=== PATIENT | male | born 1950 | race Caucasian/White ===

== ENCOUNTER 2021-12-16 06:22 | Emergency (ER) | payer OTHER ==
[2021-12-16 07:05] LABS: #Basophils 0.1 10x3/uL (0.0-0.2); #Eosinphils 0.2 10x3/uL (0.0-0.5); #Monocytes 0.8 10x3/uL (0.0-1.1); #Neutrophils 7.6 10x3/uL (1.5-8.4); %Basophils 0.5 % (0.0-2.0); %Eosinophils 1.6 % (0.0-6.0); %Lymphocytes 14.3 % (18.0-47.0); %Neutrophils 74.7 % (40.0-75.0); Hemoglobin 15.3 g/dL (13.5-17.5); Mean Corpuscular HGB CONC 35.3 g/dL (32.0-36.0); Mean Corpuscular Hemoglobin 30.3 pg (27.0-33.0); Mean Corpuscular Volume 85.7 fl (81.2-95.1); Mean Platelet Volume 9.7 fl (7.4-10.4); Platelet Count 253 10x3/uL (150-450); RBC Distribution Width 12.2 % (11.5-14.5); Red Blood Cell (RBC) Count 5.05 10x6/uL (4.32-5.72); White Blood Cell (WBC) Count 10.1 10x3/uL (3.5-10.5)
[2021-12-16] MEDS ORDERED: Lidocaine 1% w/Epinephrine 1:100K 20 ML VIAL ONE (07:16)
[2021-12-16] MEDS ORDERED: Boostrix 0.5 ML (Tdap) VIAL ONE (07:17)
[2021-12-16 07:19] LABS: ALT (SGPT) 18 U/L (8-55); AST (SGOT) 15 U/L (5-34); Albumin 3.6 g/dL (3.4-4.8); Alkaline Phosphatase 85 U/L (40-110); Anion Gap 18 mmol/L (10-20); BUN (Urea Nitrogen) 22 mg/dL (8.4-25.7); Bilirubin, Total 0.8 mg/dL (0.2-1.2); Calc. Creatinine Clearance 0 mL/min (70-130); Calcium 8.5 mg/dL (7.8-10.44); Carbon Dioxide 22 mmol/L (23-31); Chloride 98 mmol/L (98-107); Globulin 3.2 g/dL (2.4-3.5); Glucose 441 mg/dL (80-115); Potassium 4.4 mmol/L (3.5-5.1); Protein, Total 6.8 g/dL (5.8-8.1); Sodium 134 mmol/L (136-145)
[2021-12-16 07:21] LABS: PTT 30.8 sec (22.0-33.0); Prothrombin Time 11.3 sec (9.5-12.1)
[2021-12-16 08:05] LABS: SARS-CoV-2 NAA Rapid Test Not Detected (NotDetected)
== END 2021-12-16 08:57 | disposition short-term general hospital (02) ==
LOC: CSHERS 06:22 → EEVIPCON 06:22 → CSHERS 08:57
DX: S06.6X9A Traumatic subarachnoid hemorrhage with loss of consciousness of unspecified duration, initial encounter (principal); S02.19XA Other fracture of base of skull, initial encounter for closed fracture; E11.9 Type 2 diabetes mellitus without complications; I10 Essential (primary) hypertension; Z79.899 Other long term (current) drug therapy; Z79.4 Long term (current) use of insulin; W19.XXXA Unspecified fall, initial encounter
CPT/HCPCS: 12002; 36415; 36430; 70450; 71045; 72125; 80053; 83605; 84484; 85025; 85610; 85730; 86850; 86900; 86901; 87040; 90471; 90715; 93005; G0390; P9035; U0002